=== PATIENT | female | born 1970 | race Asian ===

== ENCOUNTER 2019-07-25 19:57 | Emergency (ER) | payer OTHER ==
[2019-07-25] MEDS ORDERED: KETOROLAC 60 MG/2 ML VIAL IM STA (22:08)
[2019-07-25] MEDS ORDERED: IBUPROFEN 800 MG TABLET PO STA (22:16)
--- NOTE | 2019-07-25 22:26 | ED Physician Documentation ---
PD HPI UPPER EXT INJURY - Stated complaint Stated Complaint: L SHOULDER PX - Chief complaint Chief Complaint: Ext Problem - History obtained from History obtained from: Patient - History of Present Illness Location: Left, Shoulder Timing - details: Gradual onset Pain level max: 6 Pain level now: 5 Improved by: Rest Worsened by: Moving Associated symptoms: No: Weakness, Numbness, Tingling - Additonal information Additional information: 48-year-old female presents to the emergency department complaint of left shoulder pain for the past 7 months. She states she has seen her doctor for this and was told that she has a lipoma. She states that the pain started after she was lifting some bricks at home. Worse with movement and better with rest. Has not taken anything for the pain. No numbness or tingling. Review of Systems Constitutional: denies: Fever, Chills Respiratory: denies: Cough GI: denies: Abdominal Pain, Nausea, Vomiting : denies: Now EGA Skin: denies: Rash Musculoskeletal: denies: Neck pain, Back pain Neurologic: denies: Headache PD PAST MEDICAL HISTORY - Past Medical History Past Medical History: Yes - Past Surgical History Past Surgical History: No - Present Medications Home Medications: Ambulatory Orders Medication Instructions Recorded Confirmed Ibuprofen [Motrin] 800 mg PO Q8H PRN #30 tablet 07/25/19 Prenatl Vit6/Iron/FA/B12/Ca/D3 1 tab PO DAILY 07/25/19 07/25/19 [Mteryti Combo Pack] - Allergies Allergies/Adverse Reactions: Allergies Allergy/AdvReac Type Severity Reaction Status Date / Time No Known Drug Allergies Allergy Verified 07/25/19 20:20 - Social History Does the pt smoke?: No Smoking Status: Never smoker - Immunizations Immunizations are current?: No PD ED PE NORMAL - Vitals Vital signs reviewed: Yes - General General: Alert and oriented X 3, No acute distress - HEENT HEENT: Moist mucous membranes - Neck Neck: Supple, no meningeal sign - Cardiac Cardiac: RRR - Respiratory Respiratory: No respiratory distress, Clear bilaterally - Abdomen Abdomen: Soft, Non tender, Non distended - Derm Derm: Warm and dry - Extremities Extremities: No deformity, No tenderness to palpate, Other (Patient complains about pain mainly to the posterior aspect of the shoulder, though not the glenohumeral joint. No crepitus. No bony tenderness. No tenderness about the rotator cuff. She does have some mild tenderness on the trapezial ridge. No deformity. Appears to have a small lipoma on her back.) - Neuro Neuro: Alert and oriented X 3, No motor deficit, No sensory deficit Results - Vitals Vitals: Vital Signs - 24 hr 07/25/19 22:57 Blood Pressure 122/74 Oxygen O2 Source Room air - Rads (name of study) Left shoulder x-ray Radiology: Prelim report reviewed, EMP read contemporaneously, See rad report (Normal) PD MEDICAL DECISION MAKING - ED course Complexity details: reviewed results, re-evaluated patient, considered differential, d/w patient ED course: Patient with left shoulder pain of unclear etiology. We will have her follow-up with her doctor for further care. Pain improved in the emergency department with NSAIDs. Patient counseled regarding signs and symptoms for which I believe and urgent re-evaluation would be necessary. Patient with good understanding of and agreement to plan and is comfortable going home at this time This document was made in part using voice recognition software. While efforts are made to proofread this document, sound alike and grammatical errors may occur. Departure - Departure Disposition: 01 Home, Self Care Clinical Impression: Shoulder pain, left Qualifiers: Chronicity: chronic Qualified Code(s): M25.512 - Pain in left shoulder Condition: Good Instructions: ED Shoulder Pain [facility] Follow-Up: Neil Junior MD [Primary Care Provider] - Within 1 week Prescriptions: Ibuprofen [Motrin] 800 mg PO Q8H PRN #30 tablet PRN Reason: PAIN &/OR FEVER Comments: You should follow-up with your doctor for further care. They may want to perform an MRI of your shoulder as you are not improving as expected. Follow-up with your doctor for further care. Discharge Date/Time: 07/25/19 23:07
--- NOTE | 2019-07-25 22:57 | XRAY Report ---
Reason: L shoulder pain Procedure Date: 07/25/2019 Accession Number: [id number] / [id number] Procedure: XR - Shoulder 3 View LT CPT Code: Final Report FULL RESULT: EXAM: LEFT SHOULDER RADIOGRAPHY EXAM DATE: 07/25/2019 10:47 PM. CLINICAL HISTORY: L shoulder pain, chronic. COMPARISON: None. TECHNIQUE: 3 views. FINDINGS: Bones: Normal. No fracture or bone lesion. Joints: The glenohumeral and acromioclavicular joints are normal. Soft tissues: The visualized hemithorax is unremarkable. No soft tissue swelling. IMPRESSION: Normal shoulder radiography. RADIA
[2019-07-25 22:58] VITALS: BP 122/74
== END 2019-07-25 23:07 | disposition home or self-care (01) ==
LOC: ED 19:57
DX: M25.512 Pain in left shoulder (principal); D17.1 Benign lipomatous neoplasm of skin and subcutaneous tissue of trunk
CPT/HCPCS: 73030; 99283; 99284; A9270

== ENCOUNTER 2020-11-24 15:39 | Outpatient (CLI) | payer OTHER ==
--- NOTE | 2020-11-25 11:40 | Mammography Report ---
BILATERAL DIGITAL SCREENING MAMMOGRAM 3D/2D: 11/24/2020 CLINICAL: Routine screening. Comparison is made to exam dated: 11/14/2017 mammogram - [facility]. The tissue of symone th breasts is heterogeneously dense. This may lower the sensitivity of mammography. There is an oval equal density focal asymmetry with an obscured and indistinct margin in the right br east at 1 o'clock posterior depth. No other significant masses, calcifications, or other findings are seen in either breast. IMPRESSION: INCOMPLETE: NEEDS ADDITIONAL IMAGING EVALUATION The oval equal density focal asymmetry in the right breast is indeterminate. Mediolateral and spot c ompression views as well as additional views with possible ultrasound are recommended. This exam was interpreted at Station ID: [id number]. NOTE: For mammograms, a report in lay terms will be sent to the patient. Approximately 15% of breast malignancies will not be visualized mammographically. In the management of a palpable breast mass, a negative mammogram must not discourage biopsy of a clinically suspicious lesion. Electronically Signed By: Myke Delatorre M.D. ddp/penrad:11/24/2020 16:39:06 ACR BI-RADS Category 0: Incomplete 3340F PARENCHYMAL PATTERN: (D) - The breast(s) demonstrate(s) heterogeneously dense fibroglandular juan luis corral. BI-RADS CATEGORY: (0) - 0 Mammo and [place] [id number] Immediate follow-up LATERALITY: (B)
== END 2020-11-24 15:40 | disposition home or self-care (01) ==
LOC: DI.N 15:39
DX: Z12.31 Encounter for screening mammogram for malignant neoplasm of breast (principal); R92.8 Other abnormal and inconclusive findings on diagnostic imaging of breast

== ENCOUNTER 2020-12-18 10:20 | Outpatient (CLI) | payer OTHER ==
--- NOTE | 2020-12-19 09:37 | Mammography Report ---
UNILATERAL RIGHT DIGITAL DIAGNOSTIC MAMMOGRAM 3D/2D: 12/18/2020 CLINICAL: Patient returns today to evaluate a focal asymmetry in the right breast. Comparison is made to exam dated: 11/24/2020 mammogram - [facility]. The tissue of right breast is heterogeneously dense. This may lower the sensitivity of mammography. There is a benign oval equal density focal asymmetry with an obscured and indistinct margin in the ri ght breast at 1 o'clock posterior depth on screening views. This is not seen in additional views. No other significant masses or calcifications are seen in the breast. IMPRESSION: BENIGN There is no mammographic evidence of malignancy. Return to annual mammogram screening schedule is rec ommended. This exam was interpreted at Station ID: [id number]. NOTE: For mammograms, a report in lay terms will be sent to the patient. Approximately 15% of breast malignancies will not be visualized mammographically. In the management of a palpable breast mass, a negative mammogram must not discourage biopsy of a clinically suspicious lesion. Electronically Signed By: Shadi Quiñonez acr/:12/18/2020 11:15:05 ACR BI-RADS Category 2: Benign Finding(s) 3342F PARENCHYMAL PATTERN: (D) - The breast(s) demonstrate(s) heterogeneously dense fibroglandular juan luis corral. BI-RADS CATEGORY: (2) - 2 Mammogram [id number] return to screening LATERALITY: (B)
== END 2020-12-18 10:21 | disposition home or self-care (01) ==
LOC: DI 10:20
PROVIDERS: ATTEND Physician Assistant
DX: N64.9 Disorder of breast, unspecified (principal)

== ENCOUNTER 2020-12-22 10:09 | Outpatient (CLI) | payer OTHER ==
[2020-12-22 10:50] LABS: HCT - HEMATOCRIT 21.3 % (37.0-47.0); MEAN CORPUSCULAR HEMOGLOBIN 21.8 pg (27.0-31.0); MEAN CORPUSCULAR HGB CONC 27.7 g/dL (32.0-36.0); MEAN CORPUSCULAR VOLUME 78.6 fL (81.0-99.0); MEAN PLATELET VOLUME 8.5 fL (7.9-10.8); RED BLOOD COUNT 2.71 10^6/uL (4.20-5.40); RED CELL DISTRIBUTION WIDTH 20.6 % (12.0-15.0); WHITE BLOOD COUNT 5.7 x10^3/uL (4.8-10.8)
[2020-12-22 10:56] LABS: HGB - HEMOGLOBIN 5.9 g/dL (12.0-16.0)
[2020-12-22 11:17] LABS: CA 125 267.4 U/mL (0.0-35.0)
[2020-12-22 11:20] LABS: THYROID STIMULATING HORMONE 3.07 uIU/mL (0.34-5.60)
[2020-12-22 11:21] LABS: ALBUMIN 3.8 g/dL (3.2-5.5); ALBUMIN/GLOBULIN RATIO 1.1 (1.0-2.2); BILIRUBIN,TOTAL 0.3 mg/dL (0.2-1.0); CALCIUM 8.8 mg/dL (8.5-10.3); CREATININE 0.5 mg/dL (0.4-1.0); POTASSIUM 3.5 mmol/L (3.5-5.0); TOTAL PROTEIN 7.4 g/dL (6.7-8.2)
[2020-12-22 11:22] LABS: FREE T4 (FREE THYROXINE) 0.74 ng/dL (0.58-1.64)
[2020-12-22 11:26] LABS: FERRITIN 2.4 ng/mL (11.0-306.8)
== END 2020-12-22 10:10 | disposition home or self-care (01) ==
LOC: LAB 10:09
PROVIDERS: ATTEND Obstetrics & Gynecology
DX: D50.0 Iron deficiency anemia secondary to blood loss (chronic) (principal); R55 Syncope and collapse; R01.1 Cardiac murmur, unspecified; R19.00 Intra-abdominal and pelvic swelling, mass and lump, unspecified site; D25.9 Leiomyoma of uterus, unspecified; N83.9 Noninflammatory disorder of ovary, fallopian tube and broad ligament, unspecified; N92.0 Excessive and frequent menstruation with regular cycle
CPT/HCPCS: 36415; 80053; 81599; 82728; 83540; 84439; 84443; 84466; 85027; 86304; 86305

== ENCOUNTER 2020-12-29 10:28 | Outpatient (CLI) | payer OTHER | END 2020-12-29 10:29 | disposition home or self-care (01) | LOC: LAB 10:28 | PROVIDERS: ATTEND Obstetrics & Gynecology | DX: D64.9 Anemia, unspecified (principal) | CPT/HCPCS: 86850; 86900; 86901; 86920 ==

== ENCOUNTER 2021-01-21 09:56 | Outpatient (CLI) | payer OTHER ==
[2021-01-21] MEDS ORDERED: IOVERSOL 320 100 ML VIAL IVP ONE ×2 (10:03→16:42)
[2021-01-21] MEDS ORDERED: IOPAMIDOL-300 50 ML VIAL ONE (10:03)
[2021-01-21] MEDS ORDERED: IOPAMIDOL-300 50 ML VIAL PO ONE (16:43)
--- NOTE | 2021-01-21 17:58 | CT Report ---
PROCEDURE: Abdomen/Pelvis W INDICATIONS: RIGHT OVARIAN MASS CONTRAST: IV CONTRAST: Optiray 320 ml: 100 PO CONTRAST: Isovue 300 ml50 TECHNIQUE: After the administration of intravenous and oral contrast, 5 mm thick sections acquired from the diap hragms to the symphysis. 5 mm thick coronal and sagittal reformats were acquired. For radiation dos e reduction, the following was used: automated exposure control, adjustment of mA and/or kV accordin g to patient size. COMPARISON: None. FINDINGS: Image quality: Excellent. ABDOMEN: Lung bases: Lung bases are clear. Heart size is normal. Solid organs: Evaluation of the liver demonstrates no focal hepatic lesions. Gallbladder appears with in normal limits without calcified gallstones. Biliary system is non dilated. The spleen is normal i n size. Pancreas enhances normally without peripancreatic fat stranding or fluid collections. No adr enal nodules. Kidneys demonstrate no hydronephrosis. Peritoneum and bowel: Bowel loops demonstrate normal wall thickness and caliber. The appendix is not discretely well visualized. No pericecal inflammatory changes. A small amount of free fluid is prese nt in the right lower quadrant. No intraperineal free air. Nodes and vessels: No retroperitoneal or mesenteric adenopathy by size criteria. Aorta and inferior vena cava are normal in size. Miscellaneous: No ventral hernias. PELVIS: Genitourinary: Bladder wall thickness is normal. There is a markedly enlarged and heterogeneous uter us with multiple ill-defined hypoattenuating masses. There is a large cyst in the right lower quadran t appears to originate from the right adnexa. This measures up to 10.7 x 8.2 x 10.9 cm. There is a so lid nodule inferior to the cyst which may represent a solid component of the cyst or an exophytic micha rine fibroid. Miscellaneous: No inguinal hernias or adenopathy. Bones: No suspicious bony lesions. No vertebral body compression fractures. IMPRESSION: 1. Large cystic mass in the right lower quadrant likely ovarian origin. The findings are suspicious f or a serous or mucinous cystadenoma or cystadenocarcinoma. There is a solid nodule inferiorly which m ay represent a solid component of the mass or exophytic uterine fibroid. The differential for the cys tic mass includes a possible appendiceal cystic neoplasm although this is less likely given the size. 2. Markedly enlarged heterogeneous uterus with multiple ill-defined hypoattenuating masses. Although the findings may represent multiple uterine fibroids, ill-defined appearance of the masses raises the possibility for possible neoplasm such as endometrial carcinoma. Further evaluation is recommended with a pelvic MRI. Reviewed by: Myke Delatorre MD on 01/21/2021 5:57 PM PDT Approved by: Myke Delatorre MD on 01/21/2021 5:57 PM PDT Station ID: [id number]
== END 2021-01-21 09:57 | disposition home or self-care (01) ==
LOC: DI 09:56
PROVIDERS: ATTEND Physician Assistant
DX: R19.00 Intra-abdominal and pelvic swelling, mass and lump, unspecified site (principal); N85.2 Hypertrophy of uterus; N85.8 Other specified noninflammatory disorders of uterus
CPT/HCPCS: 74177; Q9967

== ENCOUNTER 2021-03-03 10:21 | Outpatient (CLI) | payer OTHER | END 2021-03-03 10:22 | disposition home or self-care (01) | LOC: DI 10:21 | PROVIDERS: ATTEND Obstetrics & Gynecology | DX: R01.1 Cardiac murmur, unspecified (principal); R55 Syncope and collapse | CPT/HCPCS: 93306 ==

== ENCOUNTER 2023-09-01 11:33 | Emergency (ER) | payer OTHER ==
--- NOTE | 2023-09-01 12:17 | XRAY Report ---
PROCEDURE: Chest 1V INDICATIONS: Chest pain TECHNIQUE: One view of the chest was acquired. COMPARISON: None. FINDINGS: Surgical changes and devices: None. Lungs and pleura: No pleural effusions or pneumothorax. Lungs are clear. Mediastinum: Mediastinal contours appear normal. Heart size is normal. Bones and chest wall: No suspicious bony lesions. Overlying soft tissues appear unremarkable. IMPRESSION: No acute process. Reviewed by: Latosha Hoyos MD on 09/01/2023 12:16 PM PST Approved by: Latosha Hoyos MD on 09/01/2023 12:16 PM PST Station ID: [id number]
--- NOTE | 2023-09-01 12:18 | ED Physician Documentation ---
PD HPI DYSPNEA - Stated complaint Stated Complaint: DIZZY/FALL - Chief complaint Chief Complaint: General - History obtained from History obtained from: Patient - History of Present Illness Timing - onset: How many days ago (she says she has been tired and feeling weaker, lightheaded at times, for weeks. Feels she is not getting enough sleep. 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 Feeling very faitgued. Today had lightheaded and brief syncope when stood u) Timing - onset during: Light activity Timing - details: Gradual onset, Still present Inciting event(s): No: Out of meds, URI, Immobilization/travel Improved by: Rest Worsened by: Other (standing up suddenly) Associated symptoms: No: Fever, Cough, Hemoptysis, Wheezing, Bilateral edema Recently seen: Not recently seen Review of Systems Constitutional: reports: Myalgias, Fatigue, Weight Loss. 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 - Present Medications Home Medications: Ambulatory Orders Medication Instructions Recorded Confirmed Ibuprofen [Motrin] 800 mg PO Q8H PRN #30 tablet 07/25/19 Prenatl Vit6/Iron/FA/B12/Ca/D3 1 tab PO DAILY 07/25/19 07/25/19 [Mteryti Combo Pack] - Allergies Allergies/Adverse Reactions: Allergies Allergy/AdvReac Type Severity Reaction Status Date / Time No Known Drug Allergies Allergy Verified 09/01/23 11:44 - Social History Does the pt smoke?: No Smoking Status: Never smoker Does the pt drink ETOH?: No Does the pt have substance abuse?: No - Immunizations Immunizations are current?: No - POLST Patient has POLST: No PD ED PE NORMAL - Vitals Vital signs reviewed: Yes - General General: Alert and oriented X 3, No acute distress, Well developed/nourished - HEENT HEENT: Pharynx benign - Neck Neck: Supple, no meningeal sign, No adenopathy - Cardiac Cardiac: RRR, No murmur - Respiratory Respiratory: No respiratory distress, Clear bilaterally Results - Vitals Vitals: Vital Signs - 24 hr 09/01/23 09/01/23 11:39 13:50 Temperature 36.4 C L Heart Rate 69 61 Respiratory 20 15 Rate Blood Pressure 101/53 L 115/61 O2 Saturation 100 96 Oxygen O2 Source Room air - Labs Labs: Laboratory Tests 09/01/23 09/01/23 09/01/23 12:20 12:20 12:49 WBC 3.8 L RBC 4.61 Hgb 13.4 Hct 41.6 MCV 90.2 MCH 29.1 MCHC 32.2 RDW 12.1 Plt Count 203 MPV 9.8 Neut # (Auto) 2.5 Lymph # (Auto) 0.9 L [place] # (Auto) 0.3 Eos # (Auto) 0.0 Baso # (Auto) 0.0 Absolute Nucleated RBC 0.00 Nucleated RBC % 0.0 Sodium 134 L Potassium 4.1 Chloride 105 Carbon Dioxide 29 Anion Gap 0.0 L BUN 8 Creatinine 0.6 Estimated GFR (MDRD) 105 Glucose 106 H Calcium 9.4 Magnesium 2.0 Total Bilirubin 0.3 AST 51 H ALT 56 Alkaline Phosphatase 76 Troponin I High Sens 2.7 B-Natriuretic Peptide Total Protein 7.8 Albumin 4.1 Globulin 3.7 Albumin/Globulin Ratio 1.1 Lipase 31 TSH < 0.01 L 09/01/23 12:49 WBC RBC Hgb Hct MCV MCH MCHC RDW Plt Count MPV Neut # (Auto) Lymph # (Auto) Highland # (Auto) Eos # (Auto) Baso # (Auto) Absolute Nucleated RBC Nucleated RBC % Sodium Potassium Chloride Carbon Dioxide Anion Gap BUN Creatinine Estimated GFR (MDRD) Glucose Calcium Magnesium Total Bilirubin AST ALT Alkaline Phosphatase Troponin I High Sens B-Natriuretic Peptide 13 Total Protein Albumin Globulin Albumin/Globulin Ratio Lipase TSH Departure - Departure Disposition: Home, Self Care Clinical Impression: Syncope, Fatigue, Transient hypotension Condition: Stable Record reviewed to determine appropriate education?: Yes Instructions: ED Fainting Unkn Cause Follow-Up: LAMIN PADILLA FNP [Primary Care Provider] - Comments: Your blood count is normal here. You are not anemic. Your blood pressure had been transiently low and would presumably account for your fainting episode. This can come from under hydration/volume depletion, fatigue, illness. Your basic chemistry panel kidney function, blood sugar, electrolytes are normal. Your EKG and heart rhythm are normal as are blood test markers of the heart. No signs of heart attack or heart failure to account for your episode. At this point would presume it is a combination of fatigue and under hydration. Try to sleep a little more consistently and stay well-hydrated. Regular diet. Follow-up with your primary care if you have recurring episodes. Forms: PCP List Discharge Date/Time: 09/01/23 14:15
[2023-09-01 12:31] LABS: BASOPHILS % (AUTO) 0.5 %; EOSINOPHILS % (AUTO) 0.3 %; HCT - HEMATOCRIT 41.6 % (37.0-47.0); HGB - HEMOGLOBIN 13.4 g/dL (12.0-16.0); LYMPHOCYTES # (AUTO) 0.9 10^3/uL (1.5-3.5); LYMPHOCYTES % (AUTO) 24.3 %; MEAN CORPUSCULAR HEMOGLOBIN 29.1 pg (27.0-31.0); MEAN CORPUSCULAR HGB CONC 32.2 g/dL (32.0-36.0); MEAN CORPUSCULAR VOLUME 90.2 fL (81.0-99.0); MEAN PLATELET VOLUME 9.8 fL (7.9-10.8); MONOCYTES # (AUTO) 0.3 10^3/uL (0.0-1.0); MONOCYTES % (AUTO) 8.9 %; NEUTROPHILS # (AUTO) 2.5 10^3/uL (1.5-6.6); NEUTROPHILS % (AUTO) 65.7 %; PLT - PLATELET COUNT 203 10^3/uL (130-450); RED BLOOD COUNT 4.61 10^6/uL (4.20-5.40); RED CELL DISTRIBUTION WIDTH 12.1 % (12.0-15.0); WHITE BLOOD COUNT 3.8 x10^3/uL (4.8-10.8)
[2023-09-01] MEDS ORDERED: KETOROLAC 15 MG/ML VIAL IVP STA (12:37)
[2023-09-01] MEDS ORDERED: SODIUM CHLORIDE 0.9% 1,000 ML IV STA (12:37)
[2023-09-01 12:50] LABS: ALBUMIN 4.1 g/dL (3.2-5.5); ALBUMIN/GLOBULIN RATIO 1.1 (1.0-2.2); BILIRUBIN,TOTAL 0.3 mg/dL (0.2-1.0); CALCIUM 9.4 mg/dL (8.5-10.3); CREATININE 0.6 mg/dL (0.6-1.3); POTASSIUM 4.1 mmol/L (3.5-4.5); TOTAL PROTEIN 7.8 g/dL (6.4-8.9)
[2023-09-01 12:53] LABS: TROPONIN I HIGH SENSITIVITY 2.7 ng/L (2.3-14.8)
[2023-09-01 13:52] VITALS: BP 115/61; O2SAT 96
[2023-09-01 13:54] LABS: THYROID STIMULATING HORMONE < 0.01 uIU/mL (0.34-5.60)
== END 2023-09-01 14:15 | disposition home or self-care (01) ==
LOC: ED 11:33
DX: R55 Syncope and collapse (principal); R53.83 Other fatigue
CPT/HCPCS: 36415; 80053; 83690; 83735; 83880; 84443; 84484; 85025; 93005; 96374; 99283

== ENCOUNTER 2023-11-02 12:38 | Outpatient (CLI) | payer OTHER ==
--- NOTE | 2023-11-03 07:34 | Mammography Report ---
BILATERAL DIGITAL SCREENING MAMMOGRAM 3D/2D: 11/02/2023 CLINICAL: Routine screening. Comparison is made to exams dated: 12/18/2020 mammogram, 11/24/2020 mammogram - [facility], and 11/14/2017 mammogram - [facility]. Both breasts are heterogeneously dense, which may obscure small masses (category c / 51-75% glandular tissue). No significant masses, calcifications, or other findings are seen in either breast. There has been no significant interval change. IMPRESSION: NEGATIVE There is no mammographic evidence of malignancy. A 1 year screening mammogram is recommended. Based on the Tyrer Cuzick model (a risk assessment model) the patient's lifetime risk is 15.5% and he r 10 year risk is 3.9%. According to the ACR, ACS, and NCCN guidelines, an annual breast MRI exam carlos ng with mammogram is recommended if the patient's lifetime risk is 20% or greater. This exam was interpreted at Station ID: [id number]. NOTE: For mammograms, a report in lay terms will be sent to the patient. Approximately 15% of breast malignancies will not be visualized mammographically. In the management of a palpable breast mass, a negative mammogram must not discourage biopsy of a clinically suspicious lesion. Electronically Signed By: Chirag singh/tam:11/02/2023 13:40:24 ACR BI-RADS Category 1: Negative 3341F PARENCHYMAL PATTERN: (D) - The breast(s) demonstrate(s) heterogeneously dense fibroglandular juan luis corral. BI-RADS CATEGORY: (1) - 1 RECOMMENDATION: (ANNUAL) - Recommend routine annual screening mammography. [id number] 1 year screening LATERALITY: (B)
== END 2023-11-02 12:39 | disposition home or self-care (01) ==
LOC: DI.N 12:38
PROVIDERS: ATTEND Nurse Practitioner Family
DX: Z12.31 Encounter for screening mammogram for malignant neoplasm of breast (principal); R92.333 Mammographic heterogeneous density, bilateral breasts

== ENCOUNTER 2024-05-03 08:00 | Outpatient (CLI) | payer OTHER | END 2024-05-03 23:59 | disposition home or self-care (01) | LOC: LAB.N 08:00 | PROVIDERS: ATTEND Physician Assistant Medical | DX: L02.416 Cutaneous abscess of left lower limb (principal) | CPT/HCPCS: 87070; 87181; 87205 ==